=== PATIENT | female | born 1945 | race Caucasian/White ===

== ENCOUNTER 2024-04-04 15:10 | Emergency (ER) | payer MEDICARE ==
[~2024-04-04] VITALS: Ht 154.9 cm; Wt 68.0 kg
[2024-04-04 15:44] LABS: BASOPHILS % (AUTO) 0.2 % (0.0-2.0); EOSINOPHILS % (AUTO) 0.4 % (0.0-7.0); HEMATOCRIT 36.2 % (31.2-41.9); HEMOGLOBIN 11.9 g/dL (10.9-14.3); LYMPHOCYTES # (AUTO) 0.7 K/uL (0.8-4.8); LYMPHOCYTES % (AUTO) 10.2 % (20.5-51.5); MEAN CORPUSCULAR HEMOGLOBIN 28.2 uug (24.7-32.8); MEAN CORPUSCULAR HGB CONC 33 g/dL (32.3-35.6); MEAN CORPUSCULAR VOLUME 85.8 fL (75.5-95.3); MONOCYTES # (AUTO) 0.4 K/uL (0.1-1.30); MONOCYTES % (AUTO) 6.6 % (0.0-11.0); NEUTROPHILS # (AUTO) 5.4 K/uL (1.8-8.9); NEUTROPHILS % (AUTO) 82.6 % (38.5-71.5); PLATELET COUNT (AUTO) 152 K/uL (179-408); RED BLOOD CELL COUNT(AUTO) 4.22 MIL/uL (3.63-4.92); RED CELL DISTRIBUTION WIDTH 13.6 % (12.3-17.7); WHITE BLOOD COUNT (AUTO) 6.5 K/uL (3.8-11.8)
[2024-04-04 15:45] LABS: DIFFERENTIAL COMMENT 1
[2024-04-04] MEDS: IPRATROPIUM BROMIDE 0.5 MG/2.5 ML NEBU NEB ONE (15:46)
[2024-04-04] MEDS: ALBUTEROL SULFATE 2.5 MG/3 ML NEBU NEB ONE (15:46)
[2024-04-04 15:48] VITALS: O2SAT 90
[2024-04-04] MEDS ORDERED: ALBUTEROL SULFATE 2.5 MG/3 ML NEBU ONE (15:48)
[2024-04-04] MEDS ORDERED: IPRATROPIUM BROMIDE 0.5 MG/2.5 ML NEBU ONE (15:48)
[2024-04-04 15:51] LABS: CALCIUM 8.1 mg/dL (8.5-10.1); CARBON DIOXIDE 27 mmol/L (21-32); CHLORIDE 104 mmol/L (98-107); CREATININE 0.9 mg/dL (0.6-1.3); GLUCOSE 118 mg/dL (74-106); SODIUM SERUM 141 mmol/L (136-145); UREA NITROGEN, BLOOD 19 mg/dL (7-18)
[2024-04-04 16:48] VITALS: O2SAT 99
[2024-04-04] MEDS ORDERED: ALBU18HF2 INH (17:16)
[2024-04-04 17:31] VITALS: BP 123/65; O2SAT 96
== END 2024-04-04 17:36 | disposition home or self-care (01) ==
LOC: ER 15:10
DX: J11.1 Influenza due to unidentified influenza virus with other respiratory manifestations (principal); E83.51 Hypocalcemia; J98.01 Acute bronchospasm; Z88.0 Allergy status to penicillin; Z88.2 Allergy status to sulfonamides
CPT/HCPCS: 36415; 71045; 85025; 94760; A4663; J3590